=== PATIENT | female | born 1945 | race Two or more races ===

== ENCOUNTER 2018-07-05 05:50 | Day surgery (SDC) | payer OTHER ==
[~2018-07-05] VITALS: Ht 154.9 cm; Wt 49.9 kg
[2018-07-05] MEDS ORDERED: ACETAMINOPHEN ES 500 MG TABLET ONE (06:56)
[2018-07-05] MEDS ORDERED: CELECOXIB 100 MG CAPSULE ONE (06:56)
[2018-07-05] MEDS ORDERED: METOCLOPRAMIDE HCL 10 MG/2 ML VIAL ONE (06:56)
[2018-07-05] MEDS ORDERED: oxyCODONE HCL SR 10MG TAB.SR.12H PO ONE (06:56)
[2018-07-05] MEDS ORDERED: BUPIVACAINE MPF 0.5% W/EPI INJ 30 ML VIAL ONE ×2 (10:21→10:44)
[2018-07-05] MEDS ORDERED: BACITRACIN 50000 UNITS/VIAL ONE (10:21)
[2018-07-05] MEDS ORDERED: FENTANYL PF 100MCG/2ML AMPUL ONE (10:38)
[2018-07-05] MEDS ORDERED: KETOROLAC TROMETHAMINE INJ 30 MG/ML VIAL ONE ×2 (10:44→14:10)
[2018-07-05] MEDS ORDERED: MORPHINE SULFATE INJ 4 MG/ML DISP.SYRIN ONE (10:44)
[2018-07-05] MEDS ORDERED: VANCOMYCIN 1 GM VIAL ONE (10:54)
[2018-07-05] MEDS ORDERED: TRANEXAMIC ACID 1,500 MG in SODIUM CHLORIDE IRRIG SOLUTION 85 ML IR ONE (11:30)
[2018-07-05] MEDS ORDERED: oxyCODONE IR immediate release 5 MG ONE (13:56)
[2018-07-05] MEDS ORDERED: ASPIRIN 300 MG/SUPP.RECT RC ONE (14:00)
[2018-07-05] MEDS ORDERED: ASPIRIN 600 MG/SUPP.RECT RC ONE (14:00)
[2018-07-05] MEDS ORDERED: HYDROCODONE/APAP 5/325MG 1 EACH TABLET PO PRN (14:30)
[2018-07-05] MEDS ORDERED: ONDANSETRON HCL/PF 4 MG/2 ML VIAL IVP SCH (14:30)
[2018-07-05] MEDS ORDERED: CELECOXIB 100 MG CAPSULE PO SCH (17:00)
[2018-07-05] MEDS ORDERED: FERROUS SULFATE (325 MG) 325 MG/TAB TABLET PO SCH (17:00)
[2018-07-05] MEDS ORDERED: KETOROLAC TROMETHAMINE INJ 30 MG/ML VIAL IV SCH (19:00)
== END 2018-07-05 16:00 | disposition home or self-care (01) ==
LOC: DS 05:50
PROVIDERS: ATTEND Orthopaedic Surgery
DX: M75.101 Unspecified rotator cuff tear or rupture of right shoulder, not specified as traumatic (principal)
CPT/HCPCS: 23472; 36415; 73020; 86850; 86921 ×2; 87081; A4217; A6209; A6402; C1713; J1100; J1885 ×2; J2270; J2370; J2405; J2710; J2765; J3010; J3370; J3490 ×6; 88305-TC; 88311-TC